=== PATIENT | female | born 1975 | race Caucasian/White ===

== ENCOUNTER 2016-12-12 00:11 | Emergency (ER) | payer BC, OTHER ==
[2016-12-12 00:17] VITALS: PULSE 61
[2016-12-12] MEDS ORDERED: OXYCODONE/APAP 5/325 TAB PO ONE (01:13)
[2016-12-12] MEDS ORDERED: OXYCODONE/APAP 5/325 TAB ONE (01:22)
[2016-12-12] MEDS ORDERED: ONDANSETRON DISINTEGRATING 4 MG TAB PO ONE (01:23)
[2016-12-12] MEDS ORDERED: ONDANSETRON DISINTEGRATING 4 MG TAB ONE (01:23)
--- NOTE | 2016-12-12 01:40 | EDPHY ---
H & P Stated Complaint: pt fell roller skating, c/o pain in R wrist Source: Patient, Family - Medical/Surgical History Hx Asthma: No Hx Chronic Respiratory Disease: No Hx Diabetes: No Hx Cardiac Disease: No Hx Renal Disease: No Hx Cirrhosis: No Hx Alcoholism: No Hx HIV/AIDS: No Hx Splenectomy or Spleen Trauma: No Other PMH: migraines, anxiety - Social History Smoking Status: Never smoked HPI/ROS: CHIEF COMPLAINT: Fall, wrist pain HISTORY OF PRESENT ILLNESS: roller-skating this evening when she fell, landing on an outstretched right arm. She landed directly on her right hand and felt a sudden onset of pain. It is severe pain in the distal forearm at the wrist. Some tingling of the hand while sitting on the ice at this time but no numbness. No wrist drop. No motor deficits. No pain in the ipsilateral elbow. No head injury or loss of conscious. No chest or back pain. No injury to the left arm. No injury elsewhere. Significantly painful with any kind of movement. Some improvement rest. No other associated complaints or modifying factors. PRIOR ORTHO INJURIES: None ESTABLISHED ORTHOPEDIST: none REVIEW OF SYSTEMS: Ten systems reviewed and are negative unless otherwise noted in the HPI EXAMINATION General Appearance: Alert, no distress Head: normocephalic, atraumatic. No outward signs of trauma. Eyes: Pupils equal and round, no conjunctival pallor or injection Neck: Normal inspection Respiratory: No dyspnea or retractions. No distress Cardiovascular: Pulses normal throughout With symmetric radial pulses 2+.. Brisk cap refill Neurological: A&O, sensory symmetric, strength symmetric Skin: Warm and dry, no rash Extremities: Significant tenderness to the right distal forearm near the wrist. There is deformity. Range of motion not tested at the wrist. Range of motion about the fingers on the right upper extremity are intact. There is no wrist drop. Sensory is intact distal to the right forearm injury. No tenderness of the right elbow. Range of motion of the elbow was intact. No tenderness of the right shoulder. Brisk cap refill in all fingers. MDM: Distal radius and ulnar fractures with comminution of the radius. There is no fragment that would benefit from reduction as there is comminution. She remains neuro intact distal to the injury. There is no tenderness of the ipsilateral elbow or shoulder. Pain medication and splint has been ordered. 2:[address] and she remains neurovascular intact. She is feeling much better with pain medication here. We discussed in detail discharge home with orthopedic follow-up next week. We have discussed in detail return to the emergency department precautions including paresthesia, anesthesia, wrist drop or worsening pain. Patient and her friend at bedside are comfortable with this plan and she is discharged home with a sugar-tong splint, a sling and pain medication. ED Precautions: Worsening pain. Erythema, edema, cyanosis, pallor, paresthesia or anesthesia. SUPERVISION:This patient was independently evaluated without the aide of supervising physician. (Rojelio Uribe) Constitutional: Initial Vital Signs Heart Rate 61 12/12/16 00:15 Respiratory Rate 16 12/12/16 00:15 Blood Pressure 101/65 12/12/16 00:15 O2 Sat (%) 98 12/12/16 00:15 O2 Delivery Mode Room Air Allergies/Adverse Reactions: Latex, Natural Rubber Allergy (Verified 12/12/16 00:17) Home Medications: Medication Instructions Recorded Cyclobenzaprine [Flexeril 10 MG 10 mg PO TID PRN #15 tab 12/12/16 (*)] Maxalt 12/12/16 Nasocort 12/12/16 Zoloft 50mg (*) 12/12/16 Zyrtec-D Tablet 12/12/16 oxyCODONE HCL/ACETAMINOPHEN 1 each PO Q4-6PRN PRN #15 tablet 12/12/16 [Percocet 5-325 mg Tablet] Medical Decision Making ED Course/Re-evaluation: PHYSICIAN DOCUMENTATION: The patient was evaluated and managed by the Physician It Trainer. My co- signature indicates that I have reviewed this chart and I agree with the findings and plan of care as documented. I am the secondary supervising physician. (Marlee White) - Data Points Medications Given: Discontinued Medications Ondansetron HCl (Zofran Odt) 4 mg PO EDNOW ONE Stop: 12/12/16 01:24 Last Admin: 12/12/16 01:26 Dose: 4 mg Oxycodone/Acetaminophen (Percocet 5/325) 1 - 2 tab PO EDNOW ONE Stop: 12/12/16 01:14 Last Admin: 12/12/16 01:24 Dose: 2 tab Oxycodone/Acetaminophen (Percocet 5/325mg Prepack#4) 1 btl JOY IBARRA ONE Stop: 12/12/16 01:42 Last Admin: 12/12/16 02:05 Dose: 1 btl Departure - Departure Disposition: Home, Routine, Self-Care Clinical Impression: Distal radius fracture, right Qualifiers: Encounter type: initial encounter Fracture type: closed Fracture morphology: unspecified fracture morphology Qualified Code(s): S52.501A - Unspecified fracture of the lower end of right radius, initial encounter for closed fracture Distal end of ulna fracture, closed Qualifiers: Encounter type: initial encounter Fracture morphology: unspecified fracture morphology Laterality: right Qualified Code(s): S52.601A - Unspecified fracture of lower end of right ulna, initial encounter for closed fracture Condition: Good Instructions: Oxycodone/Acetaminophen (By mouth), Arm Fracture in Adults (ED) Additional Instructions: Follow-up with Orthopedics as discussed. Return to ER for worsening pain, numbness, tingling, cyanosis or pallor. Return to ER for wrist drop as discussed Referrals: Nayana Beyer MD [Primary Care Provider] - As per Instructions Tevin Lam MD [Medical Doctor] - As per Instructions Prescriptions: Cyclobenzaprine [Flexeril 10 MG (*)] 10 mg PO TID PRN #15 tab PRN Reason: Spasms oxyCODONE HCL/ACETAMINOPHEN [Percocet 5-325 mg Tablet] 1 each PO Q4-6PRN PRN # 15 tablet PRN Reason: Pain, Breakthrough
[2016-12-12] MEDS ORDERED: OXYCODONE/APAP 5/325MG PREPACK#4 BTL TAKEHOME ONE (01:41)
[2016-12-12 02:17] VITALS: BP 104/69; RESP 18; O2SAT 93
== END 2016-12-12 02:17 | disposition home or self-care (01) ==
DX: S52.571A Other intraarticular fracture of lower end of right radius, initial encounter for closed fracture (principal); S52.611A Displaced fracture of right ulna styloid process, initial encounter for closed fracture; Z91.040 Latex allergy status; W18.39XA Other fall on same level, initial encounter
CPT/HCPCS: A4565

== ENCOUNTER → 2017-11-26 | Outpatient (CLI) | payer OTHER | LOC: FIMAGING 18:03 | PROVIDERS: ATTEND Physician Assistant | DX: S43.491D Other sprain of right shoulder joint, subsequent encounter (principal) ==

== ENCOUNTER → 2018-01-28 | Outpatient (CLI) | payer OTHER | LOC: FIMAGING 08:41 | PROVIDERS: ATTEND Obstetrics & Gynecology | DX: Z12.31 Encounter for screening mammogram for malignant neoplasm of breast (principal); Z80.3 Family history of malignant neoplasm of breast ==

== ENCOUNTER → 2018-02-11 | Outpatient (CLI) | payer OTHER | LOC: FIMAGING 10:55 | PROVIDERS: ATTEND Obstetrics & Gynecology | DX: N63.22 Unspecified lump in the left breast, upper inner quadrant (principal) ==

== ENCOUNTER 2018-07-10 14:07 | Emergency (ER) | payer OTHER ==
[2018-07-10 14:11] VITALS: BP 148/136
--- NOTE | 2018-07-10 14:35 | EDPHY ---
H & P Stated Complaint: rihgt foot lac from gate closing on it at pool Time Seen by Provider: 07/10/18 14:20 HPI/ROS: Chief Complaint: Right heel laceration HPI: 43-year-old woman sustained a laceration on the back of her right heel after striking it on the edge of a metal gate. Last tetanus was 7 years ago. Denies any other injuries. She has been able to ambulate with some discomfort. Injury happened about 2 hr ago. ROS: 10 systems were reviewed and were negative except those elements noted in the HPI. Social History: No smoking, no alcohol, no recreational drug use Family History: non-contributory Physical Exam: General: Awake, alert, no acute distress Right lower extremity: Patient has a 2.5 cm laceration on the dorsum of her right ankle over the Achilles tendon. She has full flexion and extension strength of her right foot. No obvious signs of tendon laceration. Normal perfusion. Skin: No rash - Personal History LMP (Females 10-55): IUD In Place Current Tetanus/Diphtheria Vaccine: Yes Current Tetanus Diphtheria and Acellular Pertussis (TDAP): Yes Tetanus Vaccine Date: < 10 years - Medical/Surgical History Hx Asthma: No Hx Chronic Respiratory Disease: No Hx Diabetes: No Hx Cardiac Disease: No Hx Renal Disease: No Hx Cirrhosis: No Hx Alcoholism: No Hx HIV/AIDS: No Hx Splenectomy or Spleen Trauma: No Other PMH: migraines, anxiety - Social History Smoking Status: Never smoked Constitutional: Initial Vital Signs Temperature (C) 36.7 C 07/10/18 14:09 Heart Rate 64 07/10/18 14:09 Respiratory Rate 18 07/10/18 14:09 Blood Pressure 148/136 H 07/10/18 14:09 O2 Sat (%) 99 07/10/18 14:09 O2 Delivery Mode Room Air Allergies/Adverse Reactions: Latex, Natural Rubber Allergy (Verified 07/10/18 14:11) Home Medications: Medication Instructions Recorded Cetirizine [ZyrTEC 10 mg (*)] 10 mg PO DAILY 06/10/18 Sertraline HCl [Zoloft 25mg (*)] 25 mg PO DAILY 06/10/18 Nasacort 07/10/18 Medical Decision Making Procedures: Procedure: Laceration repair. Verbal consent was obtained from the patient. The 2.5 cm laceration on the right ankle was anesthetized in the usual fashion. The wound was irrigated, draped and explored to its base with a gloved finger. There were no deep structures involved. No tendon injury was identified. The wound edge was irregular in required revision. The wound was repaired with 5, 4-0 Ethilon simple interrupted sutures. The wound repair was complicated by a wound edge revision requirement.. The procedure was performed by myself. Departure - Departure Disposition: Home, Routine, Self-Care Clinical Impression: Laceration Condition: Good Instructions: Care For Your Stitches (ED), Laceration (ED) Additional Instructions: Sutures need to be removed in 10 days, follow up with primary care physician or return to the emergency department. Return to the emergency department sooner for increasing pain, redness, discharge from the wound, fever, or any other concerns. Referrals: Nayana Beyer MD [Primary Care Provider] - As per Instructions
== END 2018-07-10 15:07 | disposition home or self-care (01) ==
PROC: 0HQMXZZ Repair Right Foot Skin, External Approach (ICD-10-PCS; principal; 2018-07-10)
DX: S91.311A Laceration without foreign body, right foot, initial encounter (principal); W22.8XXA Striking against or struck by other objects, initial encounter; Y92.9 Unspecified place or not applicable; Y93.9 Activity, unspecified; Y99.9 Unspecified external cause status